=== PATIENT | female | born 1960 | race Caucasian/White ===

== ENCOUNTER 2021-07-26 15:42 | Observation (INO) | payer BC ==
[2021-07-26] MEDS ORDERED: METOPROLOL TARTRATE 5 MG/5 ML INJ IV ONE ×3 (16:29→17:28)
[2021-07-26] MEDS ORDERED: METOPROLOL TAR 25 MG TAB ONE (16:29)
[2021-07-26 16:37] LABS: Absolute Lymphocytes (CBC) 2.2 K/uL (0.7-4.9); Basophils % 0.8 % (0-1.3); Hematocrit 40.7 % (36.0-45.0); Lymphocytes % 32.5 % (15.3-44.8); MPV 8.3 fL (7.6-11.3); RBC Red Blood Cell Count 4.47 M/uL (3.86-4.86)
--- NOTE | 2021-07-26 16:38 | RAD REPORT ---
EXAM DESCRIPTION: RAD - Chest Single View - 07/26/2021 4:28 pm CLINICAL HISTORY: CHEST PAIN Chest pain. COMPARISON: No comparisons FINDINGS: Portable technique limits examination quality. The lungs are mildly emphysematous but grossly clear. The heart is normal in size. No displaced fract ures. IMPRESSION: No acute intrathoracic process suspected.
[2021-07-26 16:43] LABS: Protime INR 0.96
[2021-07-26 17:19] LABS: ALT/SGPT 32 U/L (12-78); AST/SGOT 16 U/L (15-37); Albumin 3.7 g/dL (3.4-5.0); Alkaline Phosphatase 85 U/L (45-117); BUN Blood Urea Nitrogen 16 mg/dL (7-18); Bicarbonate 26 mmol/L (21-32); Bilirubin Direct < 0.1 mg/dL (0-0.2); Bilirubin Total 0.2 mg/dL (0.2-1.0); Glucose Level 133 mg/dL (74-106); Magnesium 2.1 mg/dL (1.8-2.4); NT PRO-BNP 282 pg/mL (<125); Potassium 3.6 mmol/L (3.5-5.1); Protein, Total 7.2 g/dL (6.4-8.2); Sodium Level 142 mmol/L (136-145); T3 Free 2.47 pg/mL (2.18-3.98); Troponin (Emerg Dept Use Only) < 0.02 ng/mL (0.0-0.045)
[2021-07-26] MEDS ORDERED: DIGOXIN 0.25 MG/ML AMP ONE (18:06)
[2021-07-26] MEDS ORDERED: ENOXAPARIN 80 MG/0.8 ML SQ ONE (18:20)
--- NOTE | 2021-07-26 18:57 | ER ---
Nurse's Notes [facility] Name: Lucho Underwood Age: 60 yrs Sex: Female : 1960 Arrival Date: 07/26/2021 Time: 15:43 Bed 3 Private MD: Diagnosis: Unspecified atrial fibrillation Presentation: 07/26 16:04 Chief complaint: Patient states: "Shortly after I ate at 1430, I started having chest ss discomfort. I think it's AFIB. this happened once before and they put me on a drip.". Coronavirus screen: Client denies travel out of the [place] in the last 14 days. Ebola Screen: Patient denies exposure to infectious person. Patient denies travel to an Ebola-affected area in the 21 days before illness onset. Initial Sepsis Screen: Does the patient meet any 2 criteria? Yes Does the patient have a suspected source of infection? No. Patient's initial sepsis screen is negative. Risk Assessment: Do you want to hurt yourself or someone else? Patient reports no desire to harm self or others. Onset of symptoms was July 26, 2021 at 14:30. 16:04 Method Of Arrival: Ambulatory ss 16:04 Acuity: ANT 2 ss Historical: - Allergies: 16:05 No Known Allergies; ss - PMHx: 16:05 Atrial fibrillation; Hypertensive disorder; Hypercholesterolemia; Hypercholesterolemia; ss - Immunization history:: Client reports receiving the 2nd dose of the Covid vaccine. - Social history:: Smoking status: Patient/guardian denies using tobacco, the patient reports quitting approximately 1 years ago. Screenin:48 Abuse screen: Denies threats or abuse. Nutritional screening: No deficits noted. jd3 Tuberculosis screening: No symptoms or risk factors identified. Fall Risk IV access (20 points). Ambulatory Aid- None/Bed Rest/Nurse Assist (0 pts). Gait- Normal/Bed Rest/Wheelchair (0 pts) Mental Status- Oriented to own ability (0 pts). Total Fontanez Fall Scale indicates No Risk (0-24 pts). Assessment: 16:30 General: Appears in no apparent distress. uncomfortable, Behavior is calm, cooperative, jd3 appropriate for age. Pain: Complains of pain in chest Pain does not radiate. Quality of pain is described as crampy, pressure, Pain began gradually. Neuro: Level of Consciousness is awake, alert, obeys commands, Oriented to person, place, time, situation. Cardiovascular: Reports chest pain, Capillary refill < 3 seconds Patient's skin is warm and dry. Rhythm is atrial fibrillation with rapid ventricular response. Respiratory: Reports shortness of breath on exertion Airway is patent Respiratory effort is even, unlabored, Respiratory pattern is regular, symmetrical, Denies cough. GI: No signs and/or symptoms were reported involving the gastrointestinal system. : No signs and/or symptoms were reported regarding the genitourinary system. EENT: No signs and/or symptoms were reported regarding the EENT system. Derm: Skin is intact, Skin is dry, Skin is normal, Skin temperature is warm. Musculoskeletal: Circulation, motion, and sensation intact. Range of motion: intact in all extremities. 18:34 Reassessment: Patient appears in no apparent distress at this time. No changes from jd3 previously documented assessment. Patient and/or family updated on plan of care and expected duration. Pain level reassessed. Patient is alert, oriented x 3, equal unlabored respirations, skin warm/dry/pink. Vital Signs: 16:04 BP 127 / 96; Pulse 154; Resp 16; Temp 97.6(TE); Pulse Ox 97% on R/A; Weight 81.65 kg; ss Height 5 ft. 4 in. (162.56 cm); Pain 6/10; 16:49 BP 116 / 73; Pulse 139; Resp 17 S; Pulse Ox 96% on R/A; jd3 18:35 BP 107 / 55; Pulse 62; Resp 18 S; Pulse Ox 95% on R/A; jd3 16:04 Body Mass Index 30.90 (81.65 kg, 162.56 cm) ED Course: 15:43 Patient arrived in ED. ds1 15:44 Magdaleno Vallecillo PA is PHCP. jr8 15:44 Nki Carvajal MD is Attending Physician. jr8 15:48 PHCP role handed off by Magdaleno Vallecillo PA cp 15:48 Bryant Doan PA is PHCP. cp 16:05 Triage completed. ss 16:05 Arm band placed on right wrist. ss 16:08 Tyson Morales RN is Primary Nurse. jd3 16:28 XRAY Chest (1 view) In Process Unspecified. EDMS 16:30 Inserted saline lock: 20 gauge in right forearm, using aseptic technique. Blood jd3 collected. 16:48 Patient has correct armband on for positive identification. Placed in gown. Bed in low jd3 position. Call light in reach. Side rails up X2. Adult w/ patient. quality assurance monitor final on. Pulse ox on. NIBP on. 16:48 Patient maintains SpO2 saturation greater than 95% on room air. jd3 18:56 Shemar Olivo DO is Hospitalizing Provider. cp 19:29 Primary Nurse role handed off by Tyson Morales RN cs9 19:35 Kojo Cruz, JUAN RAMON is Primary Nurse. as6 20:55 No provider procedures requiring assistance completed. Patient admitted, IV remains in as6 place. Administered Medications: 16:35 Drug: Metoprolol 25 mg Route: PO; jd3 16:36 Drug: Metoprolol 2.5 mg Route: IVP; Site: right forearm; jd3 16:46 Drug: Metoprolol 2.5 mg Route: IVP; Site: right forearm; jd3 17:00 Drug: Metoprolol 2.5 mg {Note: 5 mg given per verbal order by Bryant AVENDANO.} Route: jd3 IVP; Site: right forearm; 17:39 Not Given (Physician Discretion): Metoprolol 25 mg PO once cp 17:44 Drug: Metoprolol 5 mg Route: IVP; Site: right forearm; jd3 18:17 Drug: Digoxin 0.5 mg Route: IVP; Site: right forearm; jd3 18:34 Drug: Lovenox (enoxaparin) 80 mg Route: Sub-Q; Site: abdomen; jd3 Outcome: 18:57 Decision to Hospitalize by Provider. cp 20:56 Admitted to Med/surg accompanied by tech, via wheelchair, room 209, with chart, Report as6 called to Jaclyn DELATORRE 20:56 Condition: stable 20:56 Patient left the ED. as6 Signatures: Dispatcher [employer] [facility] Justina Hill ds1 Rosemary Manuel RN RN ss Roszak, Josh, PA PA jr8 Bryant Doan PA PA cp Davies, Jonathon, RN RN jd3 Stanford, Christine 9 Slawson, [place], RN RN as6
--- NOTE | 2021-07-26 18:57 | EDPHYS ---
Physician Documentation [facility] Name: Lucho Underwood Age: 60 yrs Sex: Female : 1960 Arrival Date: 07/26/2021 Time: 15:43 Bed 3 Private MD: ED Physician Nik Carvajal HPI: 07/26 16:15 This 60 yrs old Female presents to ER via Ambulatory with complaints of Irregular cp Pulse, Chest Pain. 16:15 The patient or guardian reports chest pain that is located primarily in the anterior cp chest wall, bilaterally. 16:15 Onset: at 14:30. cp 16:15 The pain does not radiate. Associated signs and symptoms: Pertinent positives: nausea, cp palpitations, Pertinent negatives: abdominal pain, cough, dizziness, headache, lower extremity pain, lower extremity swelling, shortness of breath, syncope, vomiting. The chest pain is described as a pressure. Duration: The patient or guardian reports a single episode, that is still ongoing, and unchanged. 16:15 The patient has experienced a previous episode, last month. 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 Historical: - Allergies: 16:05 No Known Allergies; ss - PMHx: 16:05 Atrial fibrillation; Hypertensive disorder; Hypercholesterolemia; Hypercholesterolemia; ss - Immunization history:: Client reports receiving the 2nd dose of the Covid vaccine. - Social history:: Smoking status: Patient/guardian denies using tobacco, the patient reports quitting approximately 1 years ago. ROS: 16:20 Constitutional: Negative for body aches, chills, fever, poor PO intake. cp 16:20 Eyes: Negative for injury, pain, redness, and discharge. cp 16:20 ENT: Negative for ear pain, sore throat, difficulty swallowing, difficulty handling secretions. 16:20 Cardiovascular: Positive for chest pain, palpitations, Negative for edema. 16:20 Respiratory: Negative for cough, shortness of breath, wheezing. 16:20 Abdomen/GI: Negative for abdominal pain, nausea, vomiting, and diarrhea, constipation. 16:20 Back: Negative for pain at rest, pain with movement. 16:20 Neuro: Negative for altered mental status, dizziness, headache, syncope, weakness. 16:20 All other systems are negative. Exam: 16:20 ECG was reviewed by the Attending Physician. cp 16:25 Constitutional: The patient appears in no acute distress, alert, awake, cp non-diaphoretic, non-toxic, well developed, well nourished. 16:25 Head/Face: Normocephalic, atraumatic. cp 16:25 Eyes: Periorbital structures: appear normal, Conjunctiva: normal, no exudate, no injection, Sclera: no appreciated abnormality, Lids and lashes: appear normal, bilaterally. 16:25 ENT: External ear(s): are unremarkable, Nose: is normal, Mouth: Lips: moist, Oral mucosa: moist, Posterior pharynx: Airway: no evidence of obstruction, patent. 16:25 Neck: ROM/movement: is normal, is supple, without pain, no range of motions limitations, no nuchal rigidity. 16:25 Chest/axilla: Inspection: normal, Palpation: is normal, no crepitus, no tenderness. 16:25 Cardiovascular: Rate: tachycardic, Rhythm: irregular, Edema: is not appreciated, JVD: is not appreciated. 16:25 Respiratory: the patient does not display signs of respiratory distress, Respirations: normal, no use of accessory muscles, no retractions, labored breathing, is not present, Breath sounds: are clear throughout, no decreased breath sounds, no stridor, no wheezing. 16:25 Abdomen/GI: Inspection: abdomen appears normal, Palpation: abdomen is soft and non-tender, in all quadrants. 16:25 Back: pain, is absent, ROM is normal. 16:25 Neuro: Orientation: to person, place \T\ time. Mentation: is normal, Motor: moves all fours, strength is normal, Sensation: is normal. Vital Signs: 16:04 BP 127 / 96; Pulse 154; Resp 16; Temp 97.6(TE); Pulse Ox 97% on R/A; Weight 81.65 kg; ss Height 5 ft. 4 in. (162.56 cm); Pain 6/10; 16:49 BP 116 / 73; Pulse 139; Resp 17 S; Pulse Ox 96% on R/A; jd3 18:35 BP 107 / 55; Pulse 62; Resp 18 S; Pulse Ox 95% on R/A; jd3 16:04 Body Mass Index 30.90 (81.65 kg, 162.56 cm) ss MDM: 15:44 Patient medically screened. jr8 17:00 Differential diagnosis: abnormal EKG, acute myocardial infarction, pancreatitis, cp pleurisy, pneumonia, pneumothorax. 18:50 Data reviewed: vital signs, nurses notes, lab test result(s), EKG, radiologic studies, cp plain films. Test interpretation: by ED physician or midlevel provider: ECG, plain radiologic studies. Counseling: I had a detailed discussion with the patient and/or guardian regarding: the historical points, exam findings, and any diagnostic results supporting the discharge/admit diagnosis, lab results, radiology results, the need for further work-up and treatment in the hospital. Response to treatment: the patient's symptoms have markedly improved after treatment, and as a result, I will admit patient. 07/26 16:09 Order name: Basic Metabolic Panel; Complete Time: 17:24 12 17:24 Interpretation: Normal except: CL 108; GLUC 133; GFR 76. 07/26 16:09 Order name: CBC with Diff; Complete Time: 17:10 07/26 17:10 Interpretation: Reviewed. 07/26 16:09 Order name: LFT's; Complete Time: 17:24 07/26 16:09 Order name: Magnesium; Complete Time: 17:24 07/26 16:09 Order name: NT PRO-BNP; Complete Time: 17:24 07/26 17:24 Interpretation: Abnormal: NT PRO-BNP 282. 07/26 16:09 Order name: PT-INR; Complete Time: 17:10 07/26 16:09 Order name: Troponin (emerg Dept Use Only); Complete Time: 17:24 07/26 17:25 Interpretation: TROPED < 0.02; Reviewed. 07/26 16:09 Order name: XRAY Chest (1 view); Complete Time: 17:10 07/26 17:10 Interpretation: Report reviewed. 07/26 16:33 Order name: T3 Free; Complete Time: 17:24 EDMS 07/26 16:33 Order name: Thyroid Stimulating Hormone; Complete Time: 17:24 EDFL 07/26 17:38 Order name: SARS-COV-2 RT PCR; Complete Time: 20:27 EDMS 07/26 20:27 Interpretation: Results reviewed. cp 07/26 16:09 Order name: EKG; Complete Time: 16:10 cp 07/26 16:09 Order name: Cardiac monitoring; Complete Time: 16:27 cp 07/26 16:09 Order name: EKG - Nurse/Tech; Complete Time: 16:27 cp 07/26 16:09 Order name: IV Saline Lock; Complete Time: 16:27 cp 07/26 16:09 Order name: Labs collected and sent; Complete Time: 16:27 cp 07/26 16:09 Order name: O2 Per Protocol; Complete Time: 16:27 cp 07/26 16:09 Order name: O2 Sat Monitoring; Complete Time: 16:27 cp EC:20 Rate is 147 beats/min. Rhythm is irregular. QRS interval is normal. QT interval is cp normal. Interpreted by me. Reviewed by me. Administered Medications: 16:35 Drug: Metoprolol 25 mg Route: PO; jd3 16:36 Drug: Metoprolol 2.5 mg Route: IVP; Site: right forearm; jd3 16:46 Drug: Metoprolol 2.5 mg Route: IVP; Site: right forearm; jd3 17:00 Drug: Metoprolol 2.5 mg {Note: 5 mg given per verbal order by Bryant HILLS} Route: jd3 IVP; Site: right forearm; 17:39 Not Given (Physician Discretion): Metoprolol 25 mg PO once cp 17:44 Drug: Metoprolol 5 mg Route: IVP; Site: right forearm; jd3 18:17 Drug: Digoxin 0.5 mg Route: IVP; Site: right forearm; jd3 18:34 Drug: Lovenox (enoxaparin) 80 mg Route: Sub-Q; Site: abdomen; jd3 Disposition Summary: 07/26/21 18:57 Hospitalization Ordered Hospitalization Status: Observation cp Provider: Shemar Olivo cp Location: Telemetry/MedSurg (observation) cp Condition: Stable cp Problem: new cp Symptoms: have improved cp Bed/Room Type: Standard cp Room Assignment: 209(07/26/21 19:17) mw Diagnosis - Unspecified atrial fibrillation cp Forms: - Medication Reconciliation Form cp - SBAR form cp Addendum: 07/28/2021 18:50 Co-signature as Attending Physician, Nik Carvajal MD PA/[employer]'s history reviewed, m a2 patient interviewed, and examined. I agree with assessment and care plan and confirm the diagnosis (es) above. Signatures: Dispatcher [employer] [facility] Raina Murray RN RN Rosemary Manuel RN RN Magdaleno Vallecillo PA PA jr8 Bryant Doan PA PA cp Davies, Jonathon, RN RN jNik Richey MD MD ma2 Corrections: (The following items were deleted from the chart) 07/26 16:33 16:11 THYROID STIMULAT HORMONE+C.LAB.BRZ ordered. [facility] 16:33 16:11 T3 FREE+C.LAB.BRZ ordered. [facility] 17:38 16:11 CORONAVIRUS+MR.LAB.BRZ ordered. [facility] 19:17 18:57 cp 07/27 19:40 12 18:45 Data reviewed: vital signs, nurses notes, lab test result(s), EKG, cp radiologic studies, plain films, 07/27 19:40 12 18:45 Test interpretation: by ED physician or midlevel provider: ECG, plain cp radiologic studies, 07/27 19:40 12 18:45 Counseling: I had a detailed discussion with the patient and/or guardian cp regarding: the historical points, exam findings, and any diagnostic results supporting the discharge/admit diagnosis, lab results, radiology results, the need for further work-up and treatment in the hospital, 07/27 19:40 07/26 18:45 Response to treatment: the patient's symptoms have markedly improved after cp treatment, and as a result, I will admit patient, cp
--- NOTE | 2021-07-26 19:45 | P.HP ---
Certification for Inpatient Patient admitted to: Observation With expected LOS: <2 Midnights Patient will require the following post-hospital care: None Practitioner: I am a practitioner with admitting privileges, knowledge of patient current condition, hospital course, and medical plan of care. Services: Services provided to patient in accordance with Admission requirements found in Title 42 Section 412.3 of the Code of Federal Regulations Patient History Date of Service: 07/26/21 Primary Care Provider: Out of town Reason for admission: Paroxysmal A. fib History of Present Illness: 60-year-old female with history of hypertension, hyperlipidemia, hypothyroidism, paroxysmal atrial fibrillation, reinkes edema presents emergency department for palpitations and shortness of breath. Patient reports that after dinner she noticed that her heart rate was very high around 150-160. Upon arrival to the emergency department patient found to be in A. fib RVR. Patient was given 3 rounds of Lopressor IV followed by digoxin 0.5 mg IV, converted to sinus rhythm with rate around 62. Patient reports low resting heart rate in the 40s which is why she is not currently on a beta-eladio, patient given 50 mg of Lopressor IV and 25 mg p.o., for this reason given patient's low resting heart rate and frequent bradycardia at night ED provider wishes to admit under observation. - Past Medical/Surgical History -: Paroxysmal A. fib -: Reinkes edema -: Hypertension -: Hypothyroidism -: Hyperlipidemia -: None Psychosocial/ Personal History: Patient lives at home with family - Family History Mother -: Stroke - Social History Smoking Status: Never smoker Alcohol use: No CD- Drugs: No Caffeine use: Yes Place of Residence: Home Review of Systems 10-point ROS is otherwise unremarkable Cardiovascular: Palpitations, As per HPI Physical Examination - Physical Exam General: Alert, In no apparent distress, Oriented x3 HEENT: Atraumatic, PERRLA, Mucous membr. moist/pink, EOMI, Sclerae nonicteric Neck: Supple, 2+ carotid pulse no bruit, No LAD, Without JVD or thyroid abnormality Respiratory: Clear to auscultation bilaterally, Normal air movement Cardiovascular: Regular rate/rhythm, Normal S1 S2 Capillary refill: <2 Seconds Gastrointestinal: Normal bowel sounds, No tenderness Musculoskeletal: No tenderness Integumentary: No rashes Neurological: Normal gait, Normal speech, Normal strength at 5/5 x4 extr, Normal tone, Normal affect Lymphatics: No axilla or inguinal lymphadenopathy - Studies Laboratory Data (last 24 hrs) 07/26/21 16:24: PT 11.0, INR 0.96 07/26/21 16:24: WBC 6.70, Hgb 13.8, Hct 40.7, Plt Count 186 07/26/21 16:24: Sodium 142, Potassium 3.6, BUN 16, Creatinine 0.77, Glucose 133 H, Magnesium 2.1, Total Bilirubin 0.2, AST 16, ALT 32, Alkaline Phosphatase 85 Assessment and Plan - Plan Assessment: Paroxysmal atrial fibrillation with rapid ventricular responseresolved History of Radha edema Hypertension Hyperlipidemia Hypothyroidism Plan: Paroxysmal atrial fibrillation with rapid ventricular responseresolved: Converted to sinus rhythm at this time, patient with low resting heart rate at night received beta-blockers, also had fairly resistant A. fib RVR. Case was discussed with cardiology recommendation is for observation overnight on telemetry, initiation of metoprolol tartrate 12 5 mg p.o. twice daily. We will hold off on anticoagulation given patient's history of Radha edema with periodic bleeding. Patient reports that in June she had a stress test and echocardiogram which were normal. History of Radha edema: Stable hold off on anticoagulation. Hypertension: Continue medications including lisinopril, metoprolol Hyperlipidemia: Continue atorvastatin 40 Hypothyroidism: Continue levothyroxine 112 DVT PPX: Lovenox Code status: Full Discharge Plan: Home Plan to discharge in: 24 Hours - Advance Directives Does patient have a Living Will: No Does patient have a Durable POA for Healthcare: No - Code Status/Comfort Care Code Status Assessed: Yes (Full code) Critical Care: No Time Spent Managing Pts Care (In Minutes): 55
[2021-07-26 21:08] VITALS: O2SAT 95
[2021-07-26 21:42] VITALS: BMI 30.9
[2021-07-26 21:51] VITALS: TEMP 98.6
[2021-07-26] MEDS ORDERED: ACETAMINOPHEN 500 MG TAB PO PRN (21:53)
[2021-07-26] MEDS ORDERED: ATORVASTATIN 40 MG TAB PO SCH (21:53)
[2021-07-26] MEDS ORDERED: ONDANSETRON 4 MG/2 ML VIAL IV PRN (21:53)
[2021-07-27 03:51] LABS: Urine Appearance CLEAR (Clear); Urine Bilirubin NEGATIVE (Negative); Urine Blood NEGATIVE (Negative); Urine Color YELLOW (Yellow); Urine Glucose NEGATIVE (Negative); Urine Protein NEGATIVE (Negative); Urine Specific Gravity <=1.005 (1.005-1.030); Urine Urobilinogen 0.2 mg/dL (0.2-1.0)
[2021-07-27 03:53] LABS: Urine Microscopic Reflex ORDER UMIC
[2021-07-27 04:20] LABS: Urine Bacteria <20 /HPF (<20); Urine RBC <5 /HPF (NONE SEEN)
--- NOTE | 2021-07-27 05:50 | P.DS ---
Admission Date: 07/26/21 Discharge Date: 07/27/21 Primary Care Provider: BRENT Barroso Disposition: ROUTINE DISCHARGE Discharge Condition: GOOD Reason for Admission: Paroxysmal A. fib Consultations: Cardiology-Dr. Esposito Procedures: COVID: Negative CXR: COMPARISON: No comparisons FINDINGS: Portable technique limits examination quality. The lungs are mildly emphysematous but grossly clear. The heart is normal in size. No displaced fractures. IMPRESSION: No acute intrathoracic process suspected. Medical Problem List: Paroxysmal atrial fibrillation with rapid ventricular responseresolved History of Pj edema Hypertension Hyperlipidemia Hypothyroidism Brief History of Present Illness: 60-year-old female with history of hypertension, hyperlipidemia, hypothyroidism, paroxysmal atrial fibrillation, pj's edema presented to the ER with palpitations and shortness of breath. She reports after dinner that her heart rate was elevated around 150. Upon arrival to the ER patient was found to be in atrial fibrillation with RVR. She was given 3 rounds of Lopressor IV along with digoxin. Patient reports this is the second time that she has had atrial fibrillation. She has seen cardiology in [place]. She has a follow-up here soon. Patient was admitted for further evaluation. Hospital Course: Patient presented with paroxysmal atrial fibrillation with RVR. This is her second episode of atrial fibrillation. Patient was treated in the emergency room. Patient was given multiple rounds of IV metoprolol along with digoxin. Patient responded appropriately. Patient now in normal sinus rhythm. Patient is seen by cardiology in [facility]. She has a follow-up soon. Patient reports history of low heart rate at night. Cardiology was consulted in the ER. Cardiology recommended to continue beta-eladio therapy. She is not able to take chronic anticoagulation therapy due to her history of Pj edema which can lead to hemorrhage of the nodules in her throat. At discharge recommend to monitor blood pressure and heart rate at least daily. Patient will start metoprolol 12.5 mg 1 pill twice daily. Recommend to hold medication if heart rate less than 60 or blood pressure less than 110. Patient may continue with aspirin 81 mg daily. Patient may be only able to take metoprolol once daily as she reports low heart rate at night. Continue with above recommendations and parameters. Patient has follow-up with cardiology this in [facility] to further evaluate and treat. Recommend to keep a record of her blood pressure and heart rate. Patient with history of hypertension. Patient has been taking lisinopril 10 mg daily at home. Lisinopril was discontinued as metoprolol was started. Since the patient will be on metoprolol recommend to discontinue lisinopril at discharge. Patient will continue with metoprolol 12.5 mg 1 pill twice daily as recommended above. Recommend to hold medication if heart rate less than 60 or blood pressure less than 110. If she is not able to take metoprolol due to low heart rate then she may restart lisinopril if blood pressure remains above 140/90. Recommend blood pressure less than 130/80. Further adjustment in her medication can be done by her PCP. Patient with hyperlipidemia. At discharge patient will continue with Lipitor 40 mg daily. Patient with hypothyroidism. TSH within normal range. At discharge patient will continue with levothyroxine 112 mcg daily. Patient with Pj edema. Patient is seen by ENT. She has a follow-up in [facility] this week. Vital Signs/Physical Exam: Temp Pulse Resp BP Pulse Ox 98.6 F 54 18 98/56 L 96 07/26/21 20:00 07/27/21 05:13 07/26/21 18:35 07/27/21 05:13 07/26/21 20:00 General: Alert, In no apparent distress, Oriented x3, Cooperative HEENT: Atraumatic Neck: Supple Respiratory: Clear to auscultation bilaterally, Normal air movement Cardiovascular: Normal pulses, Regular rate/rhythm Gastrointestinal: Normal bowel sounds, No tenderness, No masses, No rebound, No guarding Musculoskeletal: No erythema, No tenderness, No warmth Integumentary: No tenderness/swelling Neurological: Normal speech, Normal strength at 5/5 x4 extr, Normal tone, Normal affect Laboratory Data at Discharge: WBC 6.70 K/uL (4.3-10.9) 07/26/21 16:24 Hgb 13.8 g/dL (12.0-15.0) 07/26/21 16:24 Hct 40.7 % (36.0-45.0) 07/26/21 16:24 Plt Count 186 K/uL (152-406) 07/26/21 16:24 PT 11.0 SECONDS (9.5-12.5) 07/26/21 16:24 INR 0.96 07/26/21 16:24 Sodium 142 mmol/L (136-145) 07/26/21 16:24 Potassium 3.6 mmol/L (3.5-5.1) 07/26/21 16:24 BUN 16 mg/dL (7-18) 07/26/21 16:24 Creatinine 0.77 mg/dL (0.55-1.3) 07/26/21 16:24 Glucose 133 mg/dL (74-106) H 07/26/21 16:24 Magnesium 2.1 mg/dL (1.8-2.4) 07/26/21 16:24 Total Bilirubin 0.2 mg/dL (0.2-1.0) 07/26/21 16:24 AST 16 U/L (15-37) 07/26/21 16:24 ALT 32 U/L (12-78) 07/26/21 16:24 Alkaline Phosphatase 85 U/L (45-117) 07/26/21 16:24 Home Medications: Aspirin [Aspirin EC] 81 mg PO DAILY 07/26/21 Atorvastatin Calcium [Lipitor] 40 mg PO BEDTIME 07/26/21 Levothyroxine Sodium [Levothyroxine] 112 mcg PO [id number] 07/26/21 Metoprolol Tartrate [Lopressor*] 12.5 mg PO BID 6AM 6PM #60 tab 07/27/21 New Medications: Metoprolol Tartrate [Lopressor*] 12.5 mg PO BID 6AM 6PM #60 tab Physician Discharge Instructions: Patient presented with paroxysmal atrial fibrillation with RVR. This is her second episode of atrial fibrillation. Patient was treated in the emergency room. Patient was given multiple rounds of IV metoprolol along with digoxin. Patient responded appropriately. Patient now in normal sinus rhythm. Patient is seen by cardiology in [facility]. She has a follow-up soon. Patient reports history of low heart rate at night. Cardiology was consulted in the ER. Cardiology recommended to continue beta-eladio therapy. She is not able to take chronic anticoagulation therapy due to her history of Pj edema which can lead to hemorrhage of the nodules in her throat. At discharge recommend to monitor blood pressure and heart rate at least daily. Patient will start metoprolol 12.5 mg 1 pill twice daily. Recommend to hold medication if heart rate less than 60 or blood pressure less than 110. Patient may continue with aspirin 81 mg daily. Patient may be only able to take metoprolol once daily as she reports low heart rate at night. Continue with above recommendations and parameters. Patient has follow-up with cardiology this in [facility] to further evaluate and treat. Recommend to keep a record of her blood pressure and heart rate. Patient with history of hypertension. Patient has been taking lisinopril 10 mg daily at home. Lisinopril was discontinued as metoprolol was started. Since the patient will be on metoprolol recommend to discontinue lisinopril at discharge. Patient will continue with metoprolol 12.5 mg 1 pill twice daily as recommended above. Recommend to hold medication if heart rate less than 60 or blood pressure less than 110. If she is not able to take metoprolol due to low heart rate then she may restart lisinopril if blood pressure remains above 140/90. Recommend blood pressure less than 130/80. Further adjustment in her medication can be done by her PCP. Patient with hyperlipidemia. At discharge patient will continue with Lipitor 40 mg daily. Patient with hypothyroidism. TSH within normal range. At discharge patient will continue with levothyroxine 112 mcg daily. Patient with Pj edema. Patient is seen by ENT. She has a follow-up in [facility] this week. Diet: AHA Activity: Ad jose Followup: ANTOLIN DANGELO [Primary Care Provider] - Time spent managing pt's care (in minutes): 55
[2021-07-27 05:57] LABS: Absolute Lymphocytes (CBC) 2.2 K/uL (0.7-4.9); Basophils % 0.9 % (0-1.3); Hematocrit 36.6 % (36.0-45.0); MPV 8.6 fL (7.6-11.3); RBC Red Blood Cell Count 3.99 M/uL (3.86-4.86)
[2021-07-27] MEDS ORDERED: METOPROLOL TAR 25 MG TAB PO SCH ×2 (06:00→18:00)
[2021-07-27] MEDS ORDERED: LEVOTHYROXINE SODIUM 112 MCG PO SCH (06:00)
[2021-07-27 06:14] LABS: ALT/SGPT 25 U/L (12-78); AST/SGOT 11 U/L (15-37); Alkaline Phosphatase 71 U/L (45-117); BUN Blood Urea Nitrogen 12 mg/dL (7-18); Bicarbonate 26 mmol/L (21-32); Bilirubin Total 0.3 mg/dL (0.2-1.0); Glucose Level 108 mg/dL (74-106); HDL Cholesterol 63 mg/dL (40-60); LDL Cholesterol, Calculated 91 (<130); Potassium 4.1 mmol/L (3.5-5.1); Sodium Level 142 mmol/L (136-145)
[2021-07-27] MEDS ORDERED: LEVOTHYROXINE SOD 0.112 MG TAB PO SCH (06:30)
[2021-07-27 06:33] VITALS: BP 120/60
[2021-07-27] MEDS ORDERED: ENOXAPARIN 40 MG/0.4 ML SQ SCH (09:00)
[2021-07-27] MEDS ORDERED: lisinopriL 10 MG TAB PO SCH (09:00)
[2021-07-27] MEDS ORDERED: ASPIRIN EC 81 MG TAB PO SCH (09:00)
[2021-07-27] MEDS ORDERED: INFLUENZA VACCINE (for 6+ mo) 0.5 ML DOSE IMVAC ONE (09:00)
== END 2021-07-27 08:40 | disposition home or self-care (01) ==
LOC: ER 15:42 → ERHOLD 19:20 → 2ND 19:37
PROVIDERS: ADMIT Family Medicine; ATTEND Family Medicine
DX: I48.0 Paroxysmal atrial fibrillation (principal); I10 Essential (primary) hypertension; E78.5 Hyperlipidemia, unspecified; E03.9 Hypothyroidism, unspecified; R60.9 Edema, unspecified; Z20.822 Contact with and (suspected) exposure to COVID-19
CPT/HCPCS: 93005; 87088; 85025 ×2; 87086; 80048; 36415; 83735 ×2; 85610; 80061; 80076; 84443; 84484; 84481; 80053; 83880; 71045; 96375; 96372; 96374; 99285; U0003; J1160; J1650; 81003; 81015; G0378

== ENCOUNTER 2021-11-23 21:21 | Emergency (ER) | payer BC ==
[2021-11-23 22:21] LABS: Absolute Lymphocytes (CBC) 2.9 K/uL (0.7-4.9); Hematocrit 41.2 % (36.0-45.0); Lymphocytes % 40.4 % (15.3-44.8); MPV 8.3 fL (7.6-11.3); RBC Red Blood Cell Count 4.65 M/uL (3.86-4.86)
[2021-11-23 22:23] LABS: Protime INR 0.96
[2021-11-23 22:40] LABS: ALT/SGPT 30 U/L (12-78); AST/SGOT 17 U/L (15-37); Albumin 3.7 g/dL (3.4-5.0); Alkaline Phosphatase 64 U/L (45-117); BUN Blood Urea Nitrogen 20 mg/dL (7-18); Bicarbonate 26 mmol/L (21-32); Bilirubin Total 0.2 mg/dL (0.2-1.0); Glucose Level 110 mg/dL (74-106); Magnesium 2.1 mg/dL (1.8-2.4); NT PRO-BNP 266 pg/mL (<125); Potassium 3.9 mmol/L (3.5-5.1); Protein, Total 6.8 g/dL (6.4-8.2); Sodium Level 141 mmol/L (136-145); Troponin High Sensitivity 12.4 pg/mL (<58.9)
[2021-11-23 22:55] LABS: Bilirubin Direct < 0.1 mg/dL (0-0.2)
--- NOTE | 2021-11-23 23:41 | EDPHYS ---
Physician Documentation [facility] Name: Lucho Underwood Age: 61 yrs Sex: Female : 1960 Arrival Date: 11/23/2021 Time: 21:47 Bed 14 Private MD: ED Physician Greg Escamilla HPI: 11/23 22:01 This 61 yrs old Female presents to ER via Ambulatory with complaints of Palpitations, jmm High heart rate. 22:01 The patient presents with a history of Weird feeling. Is a 61-year-old female with jmm history of atrial fibrillation, hyperlipidemia, hypertension the presents emerged department with complaints of an uneasy/weird feeling. Patient states she checked her heart rate and it was over 180 bpm. Patient states she then took to 25 mg metoprolol as that her bessemer regulator had prescribed her. Her heart rate continued to be high so she was advised to go to the ER for further evaluation.. Historical: - Allergies: 22:09 No Known Allergies; sm5 - Home Meds: 22:09 Metoprolol Tartrate Oral [Active]; Lisinopril Oral [Active]; atorvastatin oral sm5 [Active]; levothyroxine oral [Active]; - PMHx: 22:09 Atrial fibrillation; Hypercholesterolemia; Hypertensive disorder; Renke's Edema; sm5 - Immunization history:: Client reports receiving the 2nd dose of the Covid vaccine. - Social history:: Smoking status: Patient/guardian denies using tobacco, the patient reports quitting approximately 20 years ago. ROS: 22:01 Constitutional: Negative for fever, chills, and weight loss. jmm 22:01 Respiratory: Negative for shortness of breath, cough, wheezing, and pleuritic chest pain. 22:01 Cardiovascular: Positive for palpitations. 22:01 All other systems are negative. Exam: 22:01 Constitutional: This is a well developed, well nourished patient who is awake, alert, jmm and in no acute distress. Head/Face: atraumatic. Eyes: EOMI, no conjunctival erythema appreciated ENT: Moist Mucus Membranes Neck: Trachea midline, Supple Chest/axilla: Normal chest wall appearance and motion. 22:01 Respiratory: Normal respirations, no respiratory distress appreciated Abdomen/GI: Non distended, soft Back: Normal ROM Skin: General appearance color normal MS/ Extremity: Moves all extremities, no obvious deformities appreciated, no edema noted to the lower extremities Neuro: Awake and alert Psych: Behavior is normal, Mood is normal, Patient is cooperative and pleasant 22:01 Cardiovascular: Rate: normal, Rhythm: irregularly irregular. Vital Signs: 21:50 BP 115 / 81; Pulse 153; Resp 18; Temp 98.4(O); Pulse Ox 98% on R/A; Weight 76.66 kg; 5 Height 5 ft. 2 in. (157.48 cm); 11/24 00:12 BP 103 / 66; Pulse 66; Resp 18; Pulse Ox 96% on R/A; ll3 11/23 21:50 Body Mass Index 30.91 (76.66 kg, 157.48 cm) [facility] MDM: 11/23 22:41 Patient medically screened. [facility] 23:39 Data reviewed: vital signs, nurses notes. Counseling: I had a detailed discussion with devi the patient and/or guardian regarding: the historical points, exam findings, and any diagnostic results supporting the discharge/admit diagnosis, lab results, the need for outpatient follow up, to return to the emergency department if symptoms worsen or persist or if there are any questions or concerns that arise at home. ED course: Patient is alert nontoxic in appearance NAD. Patient advised to follow-up with her bessemer regulator for further evaluation. Patient states symptoms are completely resolved. Patient does have a normal heart rate on reevaluation.. 11/23 22:01 Order name: Basic Metabolic Panel; Complete Time: 22:58 [facility] 11/23 22:01 Order name: CBC with Diff; Complete Time: 22:41 [facility] 11/23 22:01 Order name: LFT's; Complete Time: 22:58 [facility] 11/23 22:01 Order name: Magnesium; Complete Time: 22:58 [facility] 11/23 22:01 Order name: NT PRO-BNP; Complete Time: 22:58 [facility] 11/23 22:01 Order name: PT-INR; Complete Time: 22:41 [facility] 11/23 22:01 Order name: Troponin HS; Complete Time: 22:58 [facility] 11/23 22:01 Order name: XRAY Chest (1 view) [facility] 11/23 22:01 Order name: EKG; Complete Time: 22:02 [facility] 11/23 22:01 Order name: Cardiac monitoring; Complete Time: 22:08 [facility] 11/23 22:01 Order name: EKG - Nurse/Tech; Complete Time: 22: [facility] 11/23 22:01 Order name: IV Saline Lock; Complete Time: 22: [facility] 11/23 22:01 Order name: Labs collected and sent; Complete Time: 22: [facility] 11/23 22:01 Order name: O2 Per Protocol; Complete Time: 22: [facility] 11/23 22: Order name: O2 Sat Monitoring; Complete Time: 22: [facility] Administered Medications: No medications were administered Disposition: 11/24 19:52 Co-signature as Attending Physician, Greg Escamilla MD I agree with the assessment and kdr plan of care. Disposition Summary: 11/23/21 23:41 Discharge Ordered Location: Home [facility] Condition: Stable [facility] Diagnosis - Unspecified atrial fibrillation [facility] Followup: [facility] - With: Private Physician - When: 1 - 2 days - Reason: Recheck today's complaints, Continuance of care, Re-evaluation by your physician Discharge Instructions: - Discharge Summary Sheet [facility] - Atrial Fibrillation [facility] Forms: - Medication Reconciliation Form [facility] - Thank You Letter [facility] - Antibiotic Education [facility] - Prescription Opioid Use [facility] Signatures: Dispatcher [employer] Greg Kessler MD MD kdr Mickail, Joel, PA PA m Apoorva Love, RN RN sm5 Corrections: (The following items were deleted from the chart) 11/23 22:10 22:09 PMHx: Hypercholesterolemia; sm5 sm5
--- NOTE | 2021-11-23 23:41 | ER ---
Nurse's Notes [facility] Name: Lucho Underwood Age: 61 yrs Sex: Female : 1960 Arrival Date: 11/23/2021 Time: 21:47 Bed 14 Private MD: Diagnosis: Unspecified atrial fibrillation Presentation: 11/23 21:50 Chief complaint: Patient states: she has a hx of a fib, states her HR got up to 160. sm5 took two 25mg metoprolol at 445pm and 515pm. states her heart "feels funny". Coronavirus screen: Vaccine status: Patient reports receiving the 2nd dose of the covid vaccine. Ebola Screen: No symptoms or risks identified at this time. 21:50 Method Of Arrival: Ambulatory [facility] 22:08 Initial Sepsis Screen: Does the patient meet any 2 criteria? HR > 90 bpm. No. Patient's 5 initial sepsis screen is negative. Does the patient have a suspected source of infection? No. Patient's initial sepsis screen is negative. Risk Assessment: Do you want to hurt yourself or someone else? Patient reports no desire to harm self or others. Onset of symptoms was November 23, 2021 at 04:00. 22:08 Acuity: ANT 2 5 Triage Assessment: 22:10 General: Appears in no apparent distress. Behavior is calm. Pain: Denies pain. Neuro: 5 No deficits noted. Level of Consciousness is awake, alert, obeys commands, Oriented to person, place, time, situation. Cardiovascular: Reports palpitations, Capillary refill < 3 seconds Patient's skin is warm and dry. Historical: - Allergies: 22:09 No Known Allergies; sm5 - Home Meds: 22:09 Metoprolol Tartrate Oral [Active]; Lisinopril Oral [Active]; atorvastatin oral sm5 [Active]; levothyroxine oral [Active]; - PMHx: 22:09 Atrial fibrillation; Hypercholesterolemia; Hypertensive disorder; Renke's Edema; sm5 - Immunization history:: Client reports receiving the 2nd dose of the Covid vaccine. - Social history:: Smoking status: Patient/guardian denies using tobacco, the patient reports quitting approximately 20 years ago. Screenin:26 Abuse screen: Denies threats or abuse. Nutritional screening: No deficits noted. ll3 Tuberculosis screening: No symptoms or risk factors identified. Fall Risk No fall in past 12 months (0 pts). No secondary diagnosis (0 pts). IV access (20 points). Ambulatory Aid- None/Bed Rest/Nurse Assist (0 pts). Gait- Normal/Bed Rest/Wheelchair (0 pts) Mental Status- Oriented to own ability (0 pts). Total Fontanez Fall Scale indicates No Risk (0-24 pts). Assessment: 22:26 General: Appears comfortable, Behavior is calm, cooperative. Pain: Denies pain. Neuro: ll3 Level of Consciousness is awake, alert, obeys commands, Oriented to person, place, time, situation. Cardiovascular: Reports since States felt like heart was racing when first got here. Denies chest pain, Patient's skin is warm and dry. Respiratory: Respiratory effort is even, unlabored, Respiratory pattern is regular, symmetrical. Derm: Skin is pink, warm \\T\\ dry. 11/24 00:13 Reassessment: Patient and/or family updated on plan of care and expected duration. Pain ll3 level reassessed. Patient is alert, oriented x 3, equal unlabored respirations, skin warm/dry/pink. Patient denies pain at this time. Vital Signs: 11/23 21:50 BP 115 / 81; Pulse 153; Resp 18; Temp 98.4(O); Pulse Ox 98% on R/A; Weight 76.66 kg; sm5 Height 5 ft. 2 in. (157.48 cm); 11/24 00:12 BP 103 / 66; Pulse 66; Resp 18; Pulse Ox 96% on R/A; ll3 11/23 21:50 Body Mass Index 30.91 (76.66 kg, 157.48 cm) 5 ED Course: 11/23 21:47 Patient arrived in ED. kz 21:58 Davion Cortez PA is PHCP. jmm 21:58 Greg Escamilla MD is Attending Physician. [facility] 22:09 Triage completed. 5 22:11 Arm band placed on right wrist. EKG completed in triage. Results shown to MD. sm5 22:11 Inserted saline lock: 20 gauge in left antecubital area, using aseptic technique. Blood 5 collected. 22:25 Allan Oliveira, RN is Primary Nurse. ll3 22:26 Patient has correct armband on for positive identification. Placed in gown. Bed in low ll3 position. Call light in reach. Side rails up X 1. front desk monitor on. Pulse ox on. NIBP on. 22:44 XRAY Chest (1 view) In Process Unspecified. EDMS 11/24 00:12 No provider procedures requiring assistance completed. IV discontinued, intact, ll3 bleeding controlled, No redness/swelling at site. Pressure dressing applied. Administered Medications: No medications were administered Outcome: 11/23 23:41 Discharge ordered by MD. quinonez 11/24 00:13 Discharged to home ambulatory. ll3 Condition: stable Discharge instructions given to patient, Instructed on discharge instructions, follow up and referral plans. Demonstrated understanding of instructions, follow-up care. 00:13 Patient left the ED. ll3 Signatures: Dispatcher [employer] EDMI Davion Cortez PA PA jmm Loubet, Lynsea RN RN ll3 Apoorva Love RN RN sm5 Chanel Busby Corrections: (The following items were deleted from the chart) 11/23 22:10 22:09 PMHx: Hypercholesterolemia; sm5 [email or web address]
[2021-11-24 00:40] VITALS: TEMP 98.4
[2021-11-24 00:41] VITALS: BP 103/66; O2SAT 96
--- NOTE | 2021-11-25 08:16 | RAD REPORT ---
EXAM DESCRIPTION: RAD - Chest Single View - 11/23/2021 10:42 pm XR Chest, 1 View CLINICAL HISTORY: SOB TECHNIQUE: Frontal view of the chest. COMPARISON: No relevant prior studies available. FINDINGS: Lungs: Unremarkable. No consolidation. Pleural space: Unremarkable. No pneumothorax. Heart: Unremarkable. No cardiomegaly. Mediastinum: Unremarkable. Bones/joints: Unremarkable. Vasculature: Thoracic aortic atherosclerosis. IMPRESSION: No acute disease. Electronically signed by: Jimena Cisneros MD 11/23/2021 11:32 PM CDT Due to temporary technical issues with the PACS/Fluency reporting system, reports are being signed by the in house radiologists without review as a courtesy to insure prompt reporting. The interpreting radiologist is fully responsible for the content of the report.
== END 2021-11-24 00:13 | disposition home or self-care (01) ==
LOC: ER 21:21
DX: I48.91 Unspecified atrial fibrillation (principal); I10 Essential (primary) hypertension; E78.00 Pure hypercholesterolemia, unspecified
CPT/HCPCS: 36415; 71045; 80048; 80076; 83735; 83880; 84484; 85025; 85610; 93005; 99284